=== PATIENT | male | born 1980 | race African-American/Black ===

== ENCOUNTER 2018-08-02 19:25 | Emergency (ER) | payer MEDICAID, OTHER ==
[~2018-08-02] VITALS: Ht 170.2 cm; Wt 91.0 kg
[~2018-08-02 19:25] MED LIST: BACLOFEN; oxycodone
[2018-08-02 19:35] VITALS: BP 150/80
== END 2018-08-03 06:42 | disposition left against medical advice (07) ==
LOC: ER 19:25
DX: M54.9 Dorsalgia, unspecified (principal); Z53.21 Procedure and treatment not carried out due to patient leaving prior to being seen by health care provider

== ENCOUNTER 2021-05-03 13:05 | Emergency (ER) | payer MEDICAID ==
[~2021-05-03] VITALS: Ht 175.3 cm; Wt 78.0 kg
[2021-05-03] MEDS ORDERED: KETOROLAC 30MG/ML VIAL IM ONE (13:30)
[2021-05-03] MEDS ORDERED: NAPR-1176 MT (13:36)
[2021-05-03] MEDS ORDERED: METHOCARBAMOL 500MG TABLET PO ONE (13:45)
[2021-05-03] MEDS ORDERED: ACETAMINOPHEN 325MG TABLET PO ONE (13:45)
[2021-05-03] MEDS ORDERED: LIDOCAINE 5% PATCH TOP SCH (13:45)
[2021-05-03] MEDS ORDERED: IBUPROFEN 400MG TABLET PO ONE (13:45)
[2021-05-03 14:25] VITALS: BP 112/78
== END 2021-05-03 15:24 | disposition home or self-care (01) ==
LOC: ER 13:05
DX: S09.8XXA Other specified injuries of head, initial encounter (principal); S39.012A Strain of muscle, fascia and tendon of lower back, initial encounter; V49.49XA Driver injured in collision with other motor vehicles in traffic accident, initial encounter; Y93.89 Activity, other specified; Y92.89 Other specified places as the place of occurrence of the external cause; Y99.8 Other external cause status; F12.10 Cannabis abuse, uncomplicated
CPT/HCPCS: 96372; 99283; J1885

== ENCOUNTER 2021-10-09 01:20 | Emergency (ER) | payer MEDICAID ==
[~2021-10-09] VITALS: Ht 175.3 cm; Wt 73.0 kg
[~2021-10-09 01:20] MED LIST changes: +NAPR-1176 MT
[2021-10-09 01:31] VITALS: BP 113/61
[2021-10-09] MEDS ORDERED: ONDANSETRON HCL 4MG/2ML INJ IV STA (02:42)
[2021-10-09] MEDS ORDERED: LORAZEPAM 2MG/ML CPJ IV ONE (02:45)
[2021-10-09] MEDS ORDERED: SODIUM CHLORIDE 0.9% 1,000 ML IV ONE (02:45)
[2021-10-09 03:00] LABS: CHLORIDE 110 mEq/L (98-107)
[2021-10-09 03:07] LABS: ETHANOL BLOOD < 10 mg/dL
== END 2021-10-09 03:56 | disposition left against medical advice (07) ==
LOC: ER 01:20
DX: T50.991A Poisoning by other drugs, medicaments and biological substances, accidental (unintentional), initial encounter (principal); Y92.9 Unspecified place or not applicable; G82.20 Paraplegia, unspecified
CPT/HCPCS: 36415; 80053; 80320; 83690; 99283; J7030; G0480

== ENCOUNTER 2022-03-12 10:32 | Inpatient (IN) | payer MEDICAID ==
[~2022-03-12] VITALS: Ht 175.3 cm; Wt 77.0 kg
[2022-03-12] MEDS ORDERED: MORPHINE SULFATE 4 MG/ML CPJ (NOT FOR IM USE) IV STA (10:46)
[2022-03-12 11:13] LABS: CHLORIDE 102 mEq/L (98-107)
[2022-03-12 11:59] LABS: BASOPHILS % 0.5 % (0.0-2.0); EOSINOPHILS % 0.1 % (0.0-5.0); HEMATOCRIT. 41.4 % (42.0-52.0); HEMOGLOBIN. 14.4 g/dL (14.0-18.0); LYMPHOCYTES % 22.4 % (20.0-50.0); MEAN CORPUSCULAR HEMOGLOBIN 36.1 pg (28.0-32.0); MEAN PLATELET VOLUME 8.4 fl (7.4-10.4); MONOCYTES % 5.9 % (2.0-8.0); NEUTROPHILS % 71.1 % (40.0-76.0); PLATELET 270 x1000/uL (130-400); RED BLOOD CELL COUNT 3.99 mill/uL (4.7-6.1)
[2022-03-12 16:00] VITALS: BP 124/95
[2022-03-12] MEDS ORDERED: ONDANSETRON HCL 4MG/2ML INJ IV PRN (17:15)
[2022-03-12] MEDS ORDERED: ACETAMINOPHEN 325MG TABLET PO PRN (17:15)
[2022-03-12] MEDS ORDERED: POTASSIUM CHLORIDE 20MEQ TABLET SR PO NR (17:15)
[2022-03-12 18:32] LABS: *AMPHETAMINES SCREEN URINE NEGATIVE (NEGATIVE); *BARBITURATES SCREEN URINE NEGATIVE (NEGATIVE); *BENZODIAZEPINES SCREEN URINE NEGATIVE (NEGATIVE); *COCAINE SCREEN URINE PRESUMTIVE POSITIVE (NEGATIVE); CANNABINOID URINE SCREEN PRESUMTIVE POSITIVE (NEGATIVE); METHADONE URINE SCREEN NEGATIVE (NEGATIVE); OPIATES URINE SCREEN NEGATIVE (NEGATIVE); PHENCYCLIDINE URINE SCREEN NEGATIVE (NEGATIVE)
[2022-03-13] MEDS ORDERED: ASPIRIN 81MG TABLET PO SCH (09:00)
== END 2022-03-12 19:00 | disposition left against medical advice (07) | DRG 203 ==
LOC: ER 10:32 → 7WST 13:34 → EDBEDREQ 13:42 → EDBEDREQTM 13:42 → ENRESERV 15:08
PROVIDERS: ADMIT Internal Medicine Nephrology; ATTEND Internal Medicine Nephrology
DX: R07.89 Other chest pain (principal); E87.1 Hypo-osmolality and hyponatremia; F12.90 Cannabis use, unspecified, uncomplicated; F14.10 Cocaine abuse, uncomplicated; Z53.29 Procedure and treatment not carried out because of patient's decision for other reasons; R06.00 Dyspnea, unspecified; Z79.899 Other long term (current) drug therapy; E87.6 Hypokalemia
CPT/HCPCS: 36415; 71045; 80053; 80305; 83880; 84484; 85025; 93005; 99285; J2270

== ENCOUNTER 2022-06-30 13:43 | Emergency (ER) | payer MEDICAID ==
[~2022-06-30] VITALS: Ht 175.3 cm; Wt 78.0 kg
[2022-06-30 13:46] VITALS: BP 134/83
[2022-06-30] MEDS ORDERED: IBUPROFEN 400MG TABLET PO ONE (15:00)
== END 2022-06-30 18:42 | disposition home or self-care (01) ==
LOC: ER 13:43
DX: R05.9 Cough, unspecified (principal); R19.7 Diarrhea, unspecified; R07.0 Pain in throat; R09.81 Nasal congestion; F14.10 Cocaine abuse, uncomplicated; F12.10 Cannabis abuse, uncomplicated; G82.20 Paraplegia, unspecified; Z87.828 Personal history of other (healed) physical injury and trauma
CPT/HCPCS: 99281

== ENCOUNTER 2024-02-25 19:51 | Emergency (ER) | payer MEDICAID ==
[~2024-02-25] VITALS: Ht 175.3 cm; Wt 68.0 kg
[2024-02-25 20:02] VITALS: O2SAT 99
[2024-02-25 21:59] LABS: BASOPHILS % 0.9 % (0.0-2.0); DIFFERENTIAL COMMENT 0; EOSINOPHILS % 1.3 % (0.0-5.0); HEMATOCRIT. 41.7 % (42.0-52.0); HEMOGLOBIN. 14.3 g/dL (14.0-18.0); LYMPHOCYTES % 33.1 % (20.0-50.0); MEAN CORPUSCULAR HEMOGLOBIN 36.1 pg (28.0-32.0); MEAN CORPUSCULAR HGB CONC 34.4 g/dL (31.0-37.0); MEAN PLATELET VOLUME 8.4 fl (7.4-10.4); MONOCYTES % 10.2 % (2.0-8.0); NEUTROPHILS % 54.5 % (40.0-76.0); PLATELET 297 x1000/uL (130-400); RED BLOOD CELL COUNT 3.97 mill/uL (4.7-6.1); WHITE BLOOD COUNT 9.3 x1000/uL (4.5-11.0)
[2024-02-25 22:12] LABS: CARBON DIOXIDE 28 mEq/L (21-32); CHLORIDE 110 mEq/L (98-107); SODIUM 139 mEq/L (136-145)
[2024-02-25 22:13] LABS: CALCIUM 9.6 mg/dL (8.7-10.4)
[2024-02-25 22:18] LABS: CREATININE 0.9 mg/dL (0.6-1.3); GLUCOSE 63 mg/dL (70-105); TROPONIN I HIGH SENSITIVITY 8 ng/L (3.0-53); UREA NITROGEN BLOOD 14 mg/dL (9-23)
[2024-02-25 22:20] LABS: ALANINE AMINOTRANSFERASE 14 IU/L (10-49); ALBUMIN 4.5 g/dL (3.2-4.8); ASPARTATE AMINOTRANSFERASE 21 IU/L (<34); BILIRUBIN TOTAL 0.4 mg/dL (0.1-1.0); PROTEIN TOTAL 7.3 g/dL (6.0-8.3)
[2024-02-25 22:32] LABS: BILIRUBIN DIRECT < 0.1 mg/dL (<=3.0)
[2024-02-25 23:44] LABS: CLARITY URINE TURBID (CLEAR); COLOR URINE YELLOW (YELLOW); GLUCOSE URINE NEGATIVE (NEGATIVE); KETONES URINE NEGATIVE (NEGATIVE); LEUKOCYTE ESTERASE URINE 2+ (NEGATIVE); NITRITE URINE POSITIVE (NEGATIVE); OCCULT BLOOD URINE NEGATIVE (NEGATIVE); PROTEIN URINE NEGATIVE (NEGATIVE); SPECIFIC GRAVITY URINE 1.008 (1.005-1.030); UROBILINOGEN URINE 0.2 E.U./dL (0.2-1.0)
[2024-02-26 00:12] LABS: TROPONIN I HIGH SENSITIVITY 7 ng/L (3.0-53)
[2024-02-26] MEDS: IBUPROFEN 400MG TABLET PO ONE (00:24)
[2024-02-26] MEDS ORDERED: CEFP200T13 MT (00:46)
[2024-02-26 01:01] VITALS: BP 136/79; PULSE 98; RESP 18; TEMP 36.94740; O2SAT 98
[2024-02-26 02:01] LABS: BACTERIA URINE TRACE; RBC URINE 0-2 /hpf (0-2); SQUAMOUS EPITHELIAL CELL URINE NONE SEEN /lpf (RARE/1+); WBC URINE 0-2 /hpf (0-2)
== END 2024-02-26 01:06 | disposition home or self-care (01) ==
LOC: ER 19:51
DX: N12 Tubulo-interstitial nephritis, not specified as acute or chronic (principal); F14.10 Cocaine abuse, uncomplicated; F12.10 Cannabis abuse, uncomplicated
CPT/HCPCS: 36415; 71045; 80048; 80076; 81003; 84484; 85025; 93005; 99285